=== PATIENT | female | born 1950 | race American Indian/Alaskan Native ===

== ENCOUNTER → 2016-03-31 | Outpatient (CLI) | payer OTHER ==
[~2016-03-31] MED LIST: LPT/40 PO; LSN5 PO; MELO15TA3 PO; METF500T5 PO
[2016-03-31 12:36] LABS: BLOOD UREA NITROGEN 20 mg/dl (7-18); BUN/CREATININE RATIO 25.9 (10-20); CALCIUM 8.9 mg/dl (8.5-10.1); CARBON DIOXIDE 27 mmol/L (21-32); CHLORIDE 104 mmol/L (98-107); CREATININE 0.76 mg/dl (0.60-1.20); GLUCOSE 111 mg/dl (70-99); POTASSIUM 4.1 mmol/L (3.5-5.1); SODIUM 137 mmol/L (136-145)
[2016-03-31 12:40] LABS: ALKALINE PHOSPHATASE 77 U/L (45-117); ALT/SGPT 29 U/L (12-78); AST/SGOT 21 U/L (15-37); CHOLESTEROL 170 mg/dl (0-200); CHOLESTEROL/HDL RATIO 2.1; HDL CHOLESTEROL 81 mg/dl; LDL CHOLESTEROL CALCULATED 68 mg/dl; TRIGLYCERIDES 104 mg/dl (0-150); VERY LOW DENSITY LIPOPROT CALC 21 mg/dl
[2016-03-31 12:41] LABS: ESTIMATED AVERAGE GLUCOSE 134 mg/dl; HA1C FLAG Normal (Normal)
[2016-03-31 12:53] LABS: RATIO 5.9 mcg/mg (0-30.0)
== END | disposition home or self-care (01) ==
LOC: C.LABPVFM 07:29
PROVIDERS: ATTEND Family Medicine
DX: Z00.00 Encounter for general adult medical examination without abnormal findings (principal); E78.5 Hyperlipidemia, unspecified; M25.569 Pain in unspecified knee; E11.9 Type 2 diabetes mellitus without complications; K21.0 Gastro-esophageal reflux disease with esophagitis

== ENCOUNTER → 2016-09-18 | Outpatient (CLI) | payer OTHER ==
[2016-09-18 18:36] LABS: ALT/SGPT 33 U/L (12-78); BLOOD UREA NITROGEN 21 mg/dl (7-18); BUN/CREATININE RATIO 22.4 (10-20); CALCIUM 9.1 mg/dl (8.5-10.1); CARBON DIOXIDE 27 mmol/L (21-32); CHLORIDE 106 mmol/L (98-107); CHOLESTEROL 138 mg/dl (0-200); CREATININE 0.94 mg/dl (0.60-1.20); GLUCOSE 113 mg/dl (70-99); POTASSIUM 4.1 mmol/L (3.5-5.1); SODIUM 139 mmol/L (136-145); TRIGLYCERIDES 77 mg/dl (0-150); VERY LOW DENSITY LIPOPROT CALC 15 mg/dl
[2016-09-18 18:39] LABS: ALB/GLOB RATIO 0.8 (0.9-2); ALKALINE PHOSPHATASE 82 U/L (45-117); AST/SGOT 27 U/L (15-37); CHOLESTEROL/HDL RATIO 2.8; HDL CHOLESTEROL 50 mg/dl; LDL CHOLESTEROL CALCULATED 73 mg/dl
[2016-09-19 06:02] LABS: ESTIMATED AVERAGE GLUCOSE 140 mg/dl; HA1C FLAG Normal (Normal)
== END | disposition home or self-care (01) ==
LOC: C.LABPVFM 10:41
PROVIDERS: ATTEND Family Medicine
DX: E78.5 Hyperlipidemia, unspecified (principal); E11.9 Type 2 diabetes mellitus without complications; M25.569 Pain in unspecified knee; K21.0 Gastro-esophageal reflux disease with esophagitis; Z11.59 Encounter for screening for other viral diseases

== ENCOUNTER → 2016-12-20 | Outpatient (CLI) | payer OTHER ==
--- NOTE | 2016-12-20 15:21 | MAMMOGRAPHY REPORT ---
ULTRASOUND OF BOTH BREASTS: 12/20/2016 CLINICAL HISTORY: Callback from screening mammogram for prominent right axillary lymph nodes. COMPARISON: Comparison is made to exams dated: 12/06/2015 mammogram, 11/16/2014 mammogram, 11/12/2013 mammogram, 10/21/2012 mammogram, 10/23/2011 mammogram, and 12/11/2016 mammogram - [facility]. TECHNIQUE: Real-time targeted ultrasound was performed of bilateral axillae. FINDINGS: First, targeted ultrasound was performed of the right axilla to evaluate the increasingly prominent r ight axillary lymph nodes. There are adjacent right axillary lymph nodes, which have normal fatty hi la although the some of the lymph nodes have mild cortical thickening. The largest lymph node measur es approximately 3.8 x 0.7 cm. These correspond with the lymph nodes seen mammographically which onofre ear increasingly prominent compared to prior mammograms. Targeted ultrasound was performed of the left axilla for comparison purposes. The lymph nodes in the left axilla appear symmetric to the right axillary lymph nodes. The lymph nodes in the left axilla have normal fatty heidi and some of the lymph nodes have mild cortical thickening, similar to the righ t axillary lymph nodes. These lymph nodes are not included on the recent screening mammogram. Given the increased prominence mammographically, recommend ultrasound-guided core needle biopsy of one of the right axillary lymph nodes for further evaluation. IMPRESSION: ACR BI-RADS CATEGORY 4: SUSPICIOUS - FOLLOW-UP RECOMMENDED Prominent right axillary lymph nodes which demonstrate mild cortical thickening on ultrasound and onofre ear increasingly prominent mammographically compared to prior exams. Left axillary lymph nodes appea r symmetric to the right axillary nodes on ultrasound. Given the mammographic change, recommend ultr asound-guided core needle biopsy of one of the right axillary lymph nodes, to rule out the possibilit y of lymphoma or other lymphoproliferative disorder. The patient was verbally notified of the results. She tentatively scheduled the biopsy before trey harkins the department. Xin Tucker M.D. ah/:12/20/2016 14:48:36 Tracer Bullet Section Supervisor: Kristina MCINTOSH(Chriss)(Deep), [facility] letter sent: Abnormal 4/5 BI-RADS Code: ACR BI-RADS Category 4: Suspicious
== END | disposition home or self-care (01) ==
LOC: C.MAMM 13:59
PROVIDERS: ATTEND Family Medicine
DX: R59.9 Enlarged lymph nodes, unspecified (principal)

== ENCOUNTER → 2017-01-05 | Outpatient (CLI) | payer OTHER ==
--- NOTE | 2017-01-05 13:11 | Discharge Instructions ---
Discharge Instructions Procedure Procedure Date: Jan 05, 2017. Reason for visit: R Axillary Node. Discharge Discharge Date: Jan 05, 2017. Discharge Diagnosis: status post axillary biopsy Instructions Activity Recommendations: Additional Limitations (see below) Return to School/Work: no limitations Recommended Home Diet: No Limitations Provider Instructions: ACTIVITY RECOMMENDATIONS: * No lifting, pushing, pulling or exercising the affected side for three days. RETURN TO SCHOOL/WORK: * You may return to work/school after the procedure, but do not perform any strenuous activities for 24 to 48 hours. MEDICATIONS: * Tylenol (two 325 mg) every four to six hours if needed for mild pain (if not allergic to Tylenol). DIET: * Resume previous diet. SPECIAL CARE INSTRUCTIONS: * Keep biopsy site dry for 24 hours. May shower after 24 hours, but do not soak (bathe) incision. * May remove Tegaderm (plastic patch) tomorrow AFTER showering. * Leave the steri-strips on for one week. Allow the steri-strips to fall off by themselves. If not off after one week, you may remove them. You may place a Bandaid crosswise over the strips, if desired. * Apply ice 10 minutes on and 10 minutes off as needed. * Wear a bra at bedtime to sleep more comfortably for 2-3 days. * Your referring physician should have the results after approximately 5 to 7 business days. * Call for unusual bleeding, fever, drainage, etc or if you have any questions call during normal business hours or after hours call Dr Tucker, . FOLLOW UP VISIT: Follow-up with Referring Physician as scheduled. Allergies Coded Allergies: No Known Allergies (Unverified , NONE, 01/19/15) Savannah Bradley Recommendations: Call your doctor if: * Temperature above 101 degrees * Pain not relieved by pain medicine ordered * There is increased drainage or redness from any incision * You have any unanswered questions or concerns. Your Doctors Instructions noted above were prepared by provider Xin Tucker. Patient Signature Section: Patient Instructions Signature Page Supraemily Olivaresr Patient (or Guardian) Signature/Date: I have read and understand the instructions given to me by my caregivers. Caregiver/RN/Doctor Signature/Date: The above-named patient and/or guardian has received patient instructions on this date. + Original Patient Signature Page (only) stays with chart. Please make copy for patient.
--- NOTE | 2017-01-05 13:55 | MAMMOGRAPHY REPORT ---
ULTRASOUND GUIDED BIOPSY RIGHT BREAST: 01/05/2017 CLINICAL HISTORY: Prominent right axillary lymph nodes. PATIENT CONSENT: The procedure, risks and benefits were discussed with the patient and informed writt en consent was obtained. A timeout was performed immediately prior to the procedure. PROCEDURE DESCRIPTION: With ultrasound guidance, aseptic technique, and lidocaine as the local anesth etic (1% lidocaine to anesthetize the skin and 1% lidocaine with epinephrine to anesthetize the deepe r tissues), one of the prominent right axillary lymph nodes was sampled 3 times with a 14-gauge achie ve biopsy needle. Immediately thereafter, with ultrasound guidance, aseptic technique, and lidocain e as the local anesthetic, a metallic localizer clip was placed into the lymph node. Direct pressure was applied to the site immediately post procedure and hemostasis was achieved. Postprocedure unila teral mammograms were performed to confirm clip placement. The patient tolerated the procedure witho ut complication. She was given wound care instructions. The specimens were sent to pathology for leandro lysis. COMPARISON: Comparison is made to exams dated: 12/20/2016 ultrasound, 12/11/2016 mammogram, 6 mammogram, 11/16/2014 mammogram, 11/12/2013 mammogram, and 10/23/2011 mammogram - [facility]. IMPRESSION: ULTRASOUND GUIDED BIOPSY Ultrasound guided core needle biopsy of one of the prominent right axillary lymph nodes, with clip pl acement. The patient will receive pathology results from her referring provider. Xin Tucker M.D. ah/:01/05/2017 13:13:11 Green Ware Caster: Saige CASEY)(Deep), [facility]
--- NOTE | 2017-01-05 13:55 | MAMMOGRAPHY REPORT ---
UNILATERAL RIGHT DIGITAL DIAGNOSTIC MAMMOGRAM: 01/05/2017 CLINICAL HISTORY: Status post ultrasound guided biopsy of a right axillary lymph node. TECHNIQUE: Postprocedural right MLO view was obtained. A cc view was not obtained as the lymph node would not be included on the cc view. COMPARISON: Comparison is made to exams dated: 12/20/2016 ultrasound, 12/06/2015 mammogram, 7 mammogram, 11/16/2014 mammogram, 11/12/2013 mammogram, and 10/21/2012 mammogram - [facility]. BREAST COMPOSITION: There are scattered areas of fibroglandular density in the right breast. FINDINGS: A new biopsy marker clip is seen within the biopsied right axillary lymph node. No signif icant postbiopsy hematoma is seen. IMPRESSION: POST PROCEDURE IMAGING FOR MARKER PLACEMENT New biopsy marker clip status post ultrasound-guided biopsy of a right axillary lymph node. Patholog y results are pending. Approximately 10% of breast cancers are not detected with mammography. A negative mammographic report should not delay biopsy if a clinically suggestive mass is present. Xin Tucker M.D. ah/:01/05/2017 13:15:32 Bottle Blowing Machine Tender: Saige MCINTOSH(Chriss)(Deep), [facility] BI-RADS Code: Post Procedure Imaging For Marker Placement
== END | disposition home or self-care (01) ==
LOC: C.MAMM 12:36
PROVIDERS: ATTEND Family Medicine
DX: R59.9 Enlarged lymph nodes, unspecified (principal)

== ENCOUNTER → 2017-01-22 | Outpatient (CLI) | payer OTHER ==
[~2017-01-22] MED LIST changes: +MELO15TA4 PO; +METF-841 PO
[2017-01-22 18:32] LABS: BASO % 0.4 %; BASO ABS # 0.03 K/uL (0-0.2); COMPLETE YES; EOS % 1.9 %; HEMATOCRIT 45.2 % (37-47); IG% 0.2 %; LYMPH % 27.5 %; LYMPH ABS # 2.28 K/uL (1.2-3.4); MEAN CELL VOLUME 87.3 fL (80-100); MEAN CORPUSCULAR HEMOGLOBIN 28.4 pg (25-34); MEAN CORPUSCULAR HGB CONC 32.5 g/dl (32-36); MEAN PLATELET VOLUME 10.3 fL (7.4-10.4); MONO % 8.3 %; NEUT % 61.7 %; PLATELET COUNT 264 K/uL (130-400); RED BLOOD COUNT 5.18 M/uL (4.2-5.4); WHITE BLOOD COUNT 8.29 K/uL (4.8-10.8)
[2017-01-22 18:57] LABS: BLOOD UREA NITROGEN 15 mg/dl (7-18); BUN/CREATININE RATIO 18.1 (10-20); CARBON DIOXIDE 26 mmol/L (21-32); CHLORIDE 103 mmol/L (98-107); CREATININE 0.82 mg/dl (0.60-1.20); GLUCOSE 116 mg/dl (70-99); POTASSIUM 3.9 mmol/L (3.5-5.1); SODIUM 137 mmol/L (136-145)
== END | disposition home or self-care (01) ==
LOC: C.LABPVFM 13:15
PROVIDERS: ATTEND Surgery
DX: R59.9 Enlarged lymph nodes, unspecified (principal); Z01.812 Encounter for preprocedural laboratory examination

== ENCOUNTER → 2017-02-02 | Day surgery (SDC) | payer OTHER ==
[2017-01-24 08:51] VITALS: Ht 149.9 cm; Wt 68.2 kg
[~2017-02-02] VITALS: Ht 149.9 cm; Wt 68.2 kg
[~2017-02-02] MED LIST changes: +ATROPINE SULFATE 0.1 MG/ML 5ML SYR IV PRN; +CEFAZOLIN 2000MG IV PUSH 10 ML IV SCH; +DEXAMETHASONE SOD INJ 4 MG/ML VIAL ONE; +FENTANYL CITRATE INJ 50 MCG/1 ML 2 ML VIAL IV PRN; +FENTANYL CITRATE INJ 50 MCG/1 ML 2 ML VIAL ONE; +HYDR-5688 PO; +HYDROCODONE/ACETAMOPHEN 5/325MG TAB PO PRN; +KETOROLAC TROMETHAMINE 30 MG/ML VIAL IV. PRN; +LACTATED RINGER'S 1000ML 1,000 ML IV SCH; +LIDOCAINE HCL 2% 2 ML VIAL (20MG/ML) ONE; +LIDOCAINE/EPINEPHRINE 1% INJ 50 ML VIAL ONE; -MELO15TA3 PO; -METF500T5 PO; +MIDAZOLAM HCL 1 MG/ML 2ML VIAL ONE; +MoRPHine SULFATE 2 MG/ML CARP IV PRN; +ONDANSETRON INJ 2 MG/ML 2 ML VIAL IV PRN; +ONDANSETRON INJ 2 MG/ML 2 ML VIAL ONE; +PROPOFOL IV EMULSION 10 MG/ML 20 ML VIAL IV ONE
--- NOTE | 2017-02-02 09:25 | History & Physical Bridge Note ---
H&P Re-Evaluation Bridge Note: I have examined the patient, reviewed the History & Physical and in the interval since the performance of the History & Physical I have noted the following changes of clinical significance: No changes noted
--- NOTE | 2017-02-02 09:29 | Discharge Instructions ---
Discharge Instructions Date of Service Feb 02, 2017. Visit Reason for Visit: Right Axillary Lymphoid Hyperplasia/Surg Cntr Discharge Discharge Diagnosis / Problem: right axillary lymph node biopsy Discharge Goals Goal(s): Diagnostic testing Medications Stopped Medications Name(s): Patient stopped taking all medications Sunday. Last taken Sunday. Activity Recommendations Activity Limitations: as noted below Shower/Bathe: no limitations (ok to shower) Anesthesia . Post Anesthesia Instructions: If you have had General Anesthesia or IV Sedation: * Do not drive today. * Resume driving when surgeon permits. * Do not make important decisions or sign legal documents today. * Call surgeon for: 1. Temperature elevations greater than 101 degrees F. 2. Uncontrollable pain. 3. Excessive bleeding. 4. Persistent nausea and vomiting. 5. Medication intolerance (nausea, vomiting or rash). * For nausea and vomiting use only clear liquids such as: tea, soda, bouillon until nausea subsides, then gradually increase diet as tolerated. * If you have any concerns or questions, call your surgeon's office. If physician is unavailable and it is an emergency, call 911 or go to the nearest emergency room. . Instructions / Follow-Up Instructions / Follow-Up Dr. Quinn as planned in 1-2 weeks, call [phone] for any questions Diet Recommendations Recommended Home Diet: no limitations Pending Studies Studies pending at discharge: yes List of pending studies: pathology Medical Emergencies . Who to Call and When: Medical Emergencies: If at any time you feel your situation is an emergency, please call 911 immediately. . Non-Emergent Contact Non-Emergency issues call your: Surgeon Call Non-Emergent contact if: you have a fever, temperature is above 101.5, your pain is not controlled, you have any medication questions . . "Provider Documentation" section prepared by Pavan Wood. .
[2017-02-02 11:28] VITALS: TEMP 37
[2017-02-02 11:51] VITALS: BP 115/75; PULSE 61; O2SAT 98
--- NOTE | 2017-02-02 12:00 | Anesthesia Progress Nt - [facility] ---
Anesthesia Post Op Note Date & Time Feb 02, 2017 at 11:59 Vital Signs Pain Intensity: 0 Vital Signs Past 12 Hours Date Time Temp Pulse Resp B/P (MAP) Pulse Ox O2 Delivery O2 Flow Rate FiO2 02/02/17 11:51 61 16 115/75 (88) 98 Room Air 02/02/17 11:28 37.0 60 16 124/80 (95) 98 Room Air 02/02/17 11:20 129/81 02/02/17 11:17 37.0 67 16 129/81 97 Room Air 02/02/17 11:16 61 14 02/02/17 11:16 62 14 98 02/02/17 11:15 122/76 02/02/17 11:11 63 12 97 02/02/17 11:11 63 12 02/02/17 11:10 123/79 02/02/17 11:06 58 12 02/02/17 11:06 58 12 100 02/02/17 11:05 112/82 02/02/17 11:01 62 10 02/02/17 11:01 62 10 100 02/02/17 11:00 118/75 02/02/17 10:56 72 13 02/02/17 10:56 67 13 100 02/02/17 10:55 111/78 02/02/17 10:51 78 02/02/17 10:51 36.4 79 12 119/79 100 Mask 6 02/02/17 10:51 78 119/79 100 02/02/17 08:47 36.3 75 16 126/85 (99) 98 Room Air Notes Mental Status: alert / awake / arousable, participated in evaluation Pt Amnestic to Procedure: Yes Nausea / Vomiting: adequately controlled Pain: adequately controlled Airway Patency, RR, SpO2: stable & adequate BP & HR: stable & adequate Hydration State: stable & adequate Anesthetic Complications: no major complications apparent
--- NOTE | 2017-02-02 12:45 | [facility] Operative Report ---
Operative Report Operative Date Feb 02, 2017. Pre-Operative Diagnosis Right Axillary Lymphoid Hyperplasia Post-Operative Diagnosis same as preop Procedure(s) Performed Right Axillary Excisional Lymph Node Biopsy with Needle Localization Surgeon Dr. Quinn Supervisor Dog License Officer Surgeon(s) Ivan Ornelas PA-C Estimated Blood Loss 5ml Findings enlarged axillary lymph nodes Specimens A: Right Axillary lymph nodes (out at 1032) Anesthesia LMA Complication(s) None Disposition Recovery Room / PACU Description of Procedure Prior to coming to the operating room the patient had been to the [facility] and had the right axillary lymph node localized with a needle localization without difficulty. She was then brought into the operating room and placed in a supine position with the right arm extended. After successful placement of the laryngeal mask airway the right axilla was sterilely prepped and draped in usual fashion. I made a small incision just above the guidewire and carried it down through the soft tissue using electrocautery. We then cut the guidewire and delivered it into the wound itself. Using traction countertraction and small amounts electrocautery we dissected tissue around the guidewire until we encountered an enlarged lymph node with a clip attached to it. There was actually 2 lymph nodes in the area and we used traction electrocautery to come around them in 360. Eventually we were able to get them out intact and sent to pathology. We did send them to the breast center for imaging and verified that the tip as well as the clip were all in the specimen. Once we had these out we thoroughly irrigated the wound. Any small bleeding points were controlled using electrocautery. We thoroughly irrigated the wound and close it in multiple layers using 3-0 Vicryl for the deep layers and 4-0 Monocryl for the skin. Sterile dressing was applied. The patient was awaken and transferred recovery in stable condition My physician's news assistant was present throughout the entire case. He helped prepped the patient. He helped with retraction throughout the case during my dissection. He also helped with wound closure and dressing placement I attest to the content of the Intraoperative Record and any orders documented therein. Any exceptions are noted below.
--- NOTE | 2017-02-02 12:52 | MAMMOGRAPHY REPORT ---
SPECIMEN RIGHT BREAST: 02/02/2017 CLINICAL HISTORY: Status post excision of a right axillary lymph node. COMPARISON: Comparison is made to exams dated: 01/05/2017 ultrasound biopsy, 01/05/2017 mammogram, ultrasound, 12/11/2016 mammogram, 12/06/2015 mammogram, and 11/16/2014 mammogram - [facility]. Findings: A radiograph was performed of the right axillary surgical specimen. The biopsy marker clip placed at the time of ultrasound guided biopsy is seen at the periphery of the specimen. The intact needle localization wire is also present. IMPRESSION: SPECIMEN The biopsy marker clip from prior ultrasound guided biopsy is seen at the edge of the specimen. Xin Tucker M.D. ah/:02/02/2017 10:51:30 [employer] Supervisor: Joanna MCINTOSH(R)(M), [facility]
--- NOTE | 2017-02-02 12:52 | MAMMOGRAPHY REPORT ---
NEEDLE LOCALIZATION RIGHT BREAST: 02/02/2017 CLINICAL HISTORY: Nonspecific lymphoid hyperplasia seen on recent core needle biopsy of a right axill trevor lymph node. The patient presents for surgical excision. PROCEDURE DESCRIPTION: With ultrasound guidance, aseptic technique, and 1% lidocaine as the local ane sthetic, the previously biopsied right axillary lymph node with an internal biopsy marker clip was lo calized with a 5 cm Love 2 needle. The distal aspect of the wire is shown to be located within th e axillary lymph node. The needle was removed. The patient tolerated the procedure without immediat e complication. Comparison is made to exams dated: 01/05/2017 ultrasound biopsy, 01/05/2017 mammogram, 12/20/2016 ultr asound, 12/11/2016 mammogram, 12/06/2015 mammogram, and 11/16/2014 mammogram - [facility]. IMPRESSION: NEEDLE LOCALIZATION Ultrasound guided needle localization of the previously biopsied right axillary lymph node which cont ains a biopsy marker clip. Xin Tucker M.D. ah/:02/02/2017 09:52:02 Associate Brand Manager: Joanna Reagan RT(R)(M), [facility]
== END | disposition home or self-care (01) ==
LOC: X.SURG 08:21
PROVIDERS: ATTEND Surgery
DX: R59.9 Enlarged lymph nodes, unspecified (principal); E11.9 Type 2 diabetes mellitus without complications; E78.5 Hyperlipidemia, unspecified; Z82.49 Family history of ischemic heart disease and other diseases of the circulatory system; Z79.899 Other long term (current) drug therapy; Z68.30 Body mass index [BMI] 30.0-30.9, adult; Z98.41 Cataract extraction status, right eye; Z98.42 Cataract extraction status, left eye; Z98.890 Other specified postprocedural states

== ENCOUNTER → 2017-04-09 | Outpatient (CLI) | payer OTHER ==
[~2017-04-09] MED LIST changes: -ATROPINE SULFATE 0.1 MG/ML 5ML SYR IV PRN; -CEFAZOLIN 2000MG IV PUSH 10 ML IV SCH; -DEXAMETHASONE SOD INJ 4 MG/ML VIAL ONE; -FENTANYL CITRATE INJ 50 MCG/1 ML 2 ML VIAL IV PRN; -FENTANYL CITRATE INJ 50 MCG/1 ML 2 ML VIAL ONE; -HYDROCODONE/ACETAMOPHEN 5/325MG TAB PO PRN; -KETOROLAC TROMETHAMINE 30 MG/ML VIAL IV. PRN; -LACTATED RINGER'S 1000ML 1,000 ML IV SCH; -LIDOCAINE HCL 2% 2 ML VIAL (20MG/ML) ONE; -LIDOCAINE/EPINEPHRINE 1% INJ 50 ML VIAL ONE; +MELO-83 PO; -MELO15TA4 PO; -MIDAZOLAM HCL 1 MG/ML 2ML VIAL ONE; -MoRPHine SULFATE 2 MG/ML CARP IV PRN; -ONDANSETRON INJ 2 MG/ML 2 ML VIAL IV PRN; -ONDANSETRON INJ 2 MG/ML 2 ML VIAL ONE; -PROPOFOL IV EMULSION 10 MG/ML 20 ML VIAL IV ONE
[2017-04-09 13:06] LABS: ALBUMIN 3.7 gm/dl (3.4-5.0); ALT/SGPT 28 U/L (12-78); BLOOD UREA NITROGEN 24 mg/dl (7-18); CALCIUM 9.3 mg/dl (8.5-10.1); CARBON DIOXIDE 28 mmol/L (21-32); CREATININE 0.78 mg/dl (0.60-1.20); GLUCOSE 114 mg/dl (70-99); SODIUM 138 mmol/L (136-145)
[2017-04-09 13:10] LABS: ALKALINE PHOSPHATASE 82 U/L (45-117); AST/SGOT 24 U/L (15-37); TOTAL PROTEIN 7.6 gm/dl (6.4-8.2)
== END | disposition home or self-care (01) ==
LOC: C.LABPVFM 07:59
PROVIDERS: ATTEND Family Medicine
DX: E78.5 Hyperlipidemia, unspecified (principal); E11.9 Type 2 diabetes mellitus without complications; K21.0 Gastro-esophageal reflux disease with esophagitis; M25.569 Pain in unspecified knee; K59.00 Constipation, unspecified; K63.5 Polyp of colon